=== PATIENT | female | born 1990 | race Native Hawaiian/Other Pacific Islander ===

== ENCOUNTER 2019-07-19 13:53 | Emergency (ER) | payer OTHER ==
[~2019-07-19] VITALS: Ht 154.9 cm; Wt 93.0 kg
[2019-07-19 14:06] VITALS: TEMP 98.1
[2019-07-19 15:45] VITALS: BP 123/66
== END 2019-07-19 15:45 | disposition home or self-care (01) ==
LOC: ED 13:53
DX: J06.9 Acute upper respiratory infection, unspecified (principal)
CPT/HCPCS: 87502; 87651; 99283

== ENCOUNTER 2019-08-24 16:16 | Outpatient (CLI) | payer BC | END 2019-08-24 20:14 | disposition home or self-care (01) | LOC: RAD 16:16 | DX: R07.89 Other chest pain (principal) ==

== ENCOUNTER 2019-08-26 09:35 | Outpatient (CLI) | payer BC | END 2019-08-26 21:08 | disposition home or self-care (01) | LOC: US 09:35 | DX: R74.8 Abnormal levels of other serum enzymes (principal) ==

== ENCOUNTER 2022-10-14 18:12 | Outpatient (CLI) | payer BC | END 2022-10-14 19:31 | disposition home or self-care (01) | LOC: RAD 18:12 | PROVIDERS: ATTEND Nurse Practitioner Family | DX: M54.17 Radiculopathy, lumbosacral region (principal) ==